=== PATIENT | female | born 1980 | race Caucasian/White ===

== ENCOUNTER 2017-12-07 05:19 | Emergency (ER) | payer OTHER ==
[2017-12-07 05:24] VITALS: BP 143/93
--- NOTE | 2017-12-07 05:36 | EDPHY ---
H & P Stated Complaint: left eye pain Time Seen by Provider: 12/07/17 05:35 HPI/ROS: HPI CHIEF COMPLAINT: Left eye discomfort. HISTORY OF PRESENT ILLNESS: 36-year-old female, presents emergency room with left eye discomfort. Patient states for the past 24 hr she has noticed some redness and left eye discomfort mainly in the left lateral aspect of her eye. States woke up this morning with yellow crusting and discharge. She wiped it away. Denies any loss of vision or change in vision. States that she does have sick contacts at home with cold. Denies any trauma to her eye. Past Medical History: History of asthma and thyroid Past Surgical History: No recent surgery Social History: Denies drugs alcohol tobacco. Family History: Noncontributory ROS REVIEW OF SYSTEMS: 10 Systems were reviewed and negative with the exception of the elements mentioned in the history of present illness. Exam Constitutional appears well nontoxic triage nursing summary reviewed, vital signs reviewed, awake/alert. Eyes normal conjunctivae and sclera, EOMI, PERRLA. Visual acuity reviewed. Left eye: Lateral aspect conjunctiva is injected and red. Mild edema. Pupil equal round react to light, no hyphema, anterior chamber normal, posterior chamber normal without dilatation, extra movements intact, visual lea intact, visual acuities reviewed. No foreign body visualized. Lids were everted no foreign body underneath. There is a very small scratch left lateral conjunctiva. Fluorescein uptake present. Indicating a conjunctival scratch but no corneal scratch or corneal uptake. HENT normal inspection, atraumatic, moist mucus membranes, no epistaxis, neck supple/ no meningismus, no raccoon eyes. Respiratory clear to auscultation bilaterally, normal breath sounds, no respiratory distress, no wheezing. Cardiovascular rate normal, regular rhythm, no murmur, no edema, distal pulses normal. Gastrointestinal soft, non-tender, no rebound, no guarding, normal bowel sounds, no distension, no pulsatile mass. Genitourinary no CVA tenderness. Musculoskeletal no midline vertebral tenderness, full range of motion, no calf swelling, no tenderness of extremities, no meningismus, good pulses, neurovascularly intact. Skin pink, warm, & dry, no rash, skin atraumatic. Neurologic awake, alert and oriented x 3, AAOx3, moves all 4 extremities equally, motor intact, sensory intact, CN II-XII intact, normal cerebellar, normal vision, normal speech. Psychiatric normal mood/affect. Heme/Lymph/Immune no lymphadenopathy. Differential Diagnosis: Includes but is not limited to in a particular order conjunctivitis, viral conjunctivitis, bacterial conjunctivitis, foreign body, corneal abrasions, conjunctival tear Medical Decision Making: Recommend the patient that she does cool compresses, does not rub her eye, takes antibiotics and keep her hands clean. Referral be given to Ophthalmology recommend she follows up with them. Plan for this patient cool compresses, ibuprofen for pain control, ophthalmology follow-up, Ocuflox eyedrops. Return if worsening symptoms. She understands Source: Patient - Personal History LMP (Females 10-55): Over 28 Days Ago Current Tetanus/Diphtheria Vaccine: Yes Current Tetanus Diphtheria and Acellular Pertussis (TDAP): Yes - Medical/Surgical History Hx Asthma: Yes Hx Chronic Respiratory Disease: No Hx Diabetes: No Hx Cardiac Disease: No Hx Renal Disease: No Hx Cirrhosis: No Hx Alcoholism: No Hx HIV/AIDS: No Hx Splenectomy or Spleen Trauma: No Other PMH: PCOS, asthma, hypothyriodism, kidney stones - Social History Smoking Status: Never smoked Constitutional: Initial Vital Signs Temperature (C) 37.0 C 12/07/17 05:20 Heart Rate 80 12/07/17 05:20 Respiratory Rate 16 12/07/17 05:20 Blood Pressure 143/93 H 12/07/17 05:20 O2 Sat (%) 97 12/07/17 05:20 O2 Delivery Mode Room Air Allergies/Adverse Reactions: tree nut [Nuts] Allergy (Verified 12/07/17 05:24) Home Medications: Medication Instructions Recorded Levothyroxine [Synthroid 75 mcg 75 mcg PO DAILY06 10/24/12 (RX)] Departure - Departure Disposition: Home, Routine, Self-Care Clinical Impression: Conjunctivitis Condition: Good Instructions: Conjunctivitis (ED) Additional Instructions: 1. Recommend cool compresses. 2. Antibiotic eyedrops as prescribed. 3. Ibuprofen for pain control. 4. Follow up with Ophthalmology. Referrals: Carole Spears MD [Primary Care Provider] - As per Instructions Robby Arora MD [Medical Doctor] - As per Instructions
[2017-12-07] MEDS ORDERED: PROPARACAINE/FLUORESCEIN SOD 5 ML OPHT.BTL ONE (05:40)
[2017-12-07] MEDS ORDERED: FLUORESCEIN SODIUM 1 MG STRIP OP ONE (05:42)
[2017-12-07] MEDS ORDERED: OFLOXACIN 0.3% SOLN PREPACK OPHT.BTL TAKEHOME ONE (05:51)
[2017-12-07] MEDS ORDERED: OFLOXACIN 0.3% 5ML OPHT DROPS EACHEYE SCH (06:00)
== END 2017-12-07 06:03 | disposition home or self-care (01) ==
DX: H10.9 Unspecified conjunctivitis (principal)